=== PATIENT | female | born 1940 | race Caucasian/White ===

== ENCOUNTER 2024-09-11 07:47 | Inpatient (IN) | payer MEDICARE ==
[~2024-09-11] VITALS: Ht 162.6 cm; Wt 49.9 kg
[2024-09-11 07:49] VITALS: PULSE 126; RESP 32; TEMP 103
[2024-09-11] MEDS: LACTATED RINGER'S 1,000 ML INJ ONE (07:50)
[2024-09-11] MEDS: NOREPINEPHRINE 8 MG/D5W 250 ML 250 ML IV SCH (07:50)
[2024-09-11] MEDS ORDERED: NOREPINEPHRINE 8 MG/D5W 250 ML 250 ML ONE (07:57)
[2024-09-11 08:10] LABS: BASOPHILS % 0.3 % (0.0-1.0); EOSINOPHILS % 4.3 % (0.0-6.0); LYMPHOCYTES % 5.9 % (18.0-39.1); MONOCYTES % 7.1 % (4.4-11.3); NEUTROPHILS % 80.7 % (38.7-80.0); RED CELL DISTRIBUTION WIDTH 16.7 % (11.7-14.4)
[2024-09-11] MEDS ORDERED: ACETAMINOPHEN 1000 MG/100 ML 100 ML IV ONE (08:11)
[2024-09-11] MEDS: ACETAMINOPHEN 1000 MG/100 ML IV STA (08:18)
[2024-09-11] MEDS ORDERED: AMLODIPINE BESYL5 MG PO (08:26)
[2024-09-11] MEDS ORDERED: DOCUSATE SODIU100 MG PO (08:26)
[2024-09-11] MEDS ORDERED: CLARITIN10 MG PO (08:26)
[2024-09-11] MEDS ORDERED: LOSARTAN POTASS25 MG PO (08:28)
[2024-09-11] MEDS ORDERED: HYDROCHLOROTHIA25 MG PO (08:28)
[2024-09-11] MEDS ORDERED: TRICOR145 MG PO (08:28)
[2024-09-11 08:29] LABS: INR 1.39
[2024-09-11 08:33] LABS: EST GLOMERULAR FILTRATION RATE 16.0 ML/MIN (>=60)
[2024-09-11] MEDS ORDERED: OXYBUTYNIN CHLOR5 MG PO (08:35)
[2024-09-11] MEDS ORDERED: NITROFURANTOIN50 MG PO (08:35)
[2024-09-11] MEDS ORDERED: METFORMIN HCL500 MG PO (08:35)
[2024-09-11] MEDS ORDERED: ROSUVASTATIN CA10 MG PO (08:35)
[2024-09-11 08:46] LABS: BASOPHILS % (MANUAL) 1 % (0-1.5); EOSINOPHILS % (MANUAL) 2 % (0-7); LYMPHOCYTES % (MANUAL) 6 % (19-48); MONOCYTES % (MANUAL) 7 % (3.4-9.0); NEUTROPHILS % (MANUAL) 84 % (40-74); PLATELET ESTIMATE ADEQUATE; PLATELET MORPHOLOGY COMMENT NORMAL; RBC MORPHOLOGY COMMENT NORMAL
[2024-09-11] MEDS ORDERED: Morphine 4mg INJECTION 4 MG/ML INJ IV PRN (09:15)
[2024-09-11] MEDS ORDERED: Doxycycline IV 100 MG in SODIUM CHLORIDE 0.9% 100 ML IV SCH (09:15)
[2024-09-11] MEDS ORDERED: LORAZEPAM INJ 2 MG/ML VIAL IV PRN (09:15)
[2024-09-11] MEDS: ONDANSETRON HCL INJ 2MG/ML 2ML 2 MG/ML VIAL IV PRN (09:15)
[2024-09-11] MEDS: Morphine 4mg INJECTION 4 MG/ML INJ IV PRN (09:16)
[2024-09-11 09:19] LABS: LEUKOCYTE ESTERASE ,URINE SMALL (NEGATIVE); PROTEIN,URINE DIPSTICK TRACE (NEGATIVE); URINE UROBILINOGEN 0.2 mg/dL (0.2 - 1)
[2024-09-11 09:22] LABS: EPITHELIAL CELLS,URINE RARE /LPF
[2024-09-11] MEDS ORDERED: DEXTROSE 5%/0.45% SOD CHL 1,000 ML IV SCH (10:00)
[2024-09-11 10:39] VITALS: BP 65/38; PULSE 62; RESP 20; TEMP 99.7; O2SAT 95
[2024-09-11 11:05] VITALS: BP 65/38; PULSE 62; RESP 20; TEMP 99.7; O2SAT 95
[2024-09-11 11:17] VITALS: BP 65/38; PULSE 62; RESP 20; TEMP 99.7; O2SAT 95
[2024-09-11 11:58] VITALS: PULSE 62; O2SAT 96
== END 2024-09-11 13:30 | disposition hospice, inpatient (51) | DRG 871 ==
LOC: ER 07:51 → ERHOLD 08:41 → MED/SURG2 10:15
PROVIDERS: ADMIT Internal Medicine; ATTEND Internal Medicine
DX: A41.9 Sepsis, unspecified organism (principal); J18.9 Pneumonia, unspecified organism; J96.01 Acute respiratory failure with hypoxia; R65.21 Severe sepsis with septic shock; E87.20 Acidosis, unspecified; N17.9 Acute kidney failure, unspecified; E87.0 Hyperosmolality and hypernatremia; Z68.1 Body mass index [BMI] 19.9 or less, adult; R62.7 Adult failure to thrive; Z51.5 Encounter for palliative care; Z66 Do not resuscitate; I10 Essential (primary) hypertension; E11.9 Type 2 diabetes mellitus without complications; F03.C0 Unspecified dementia, severe, without behavioral disturbance, psychotic disturbance, mood disturbance, and anxiety; E86.0 Dehydration; R53.81 Other malaise
CPT/HCPCS: 36415; 71045; 80053; 81001; 83605; 85025; 85610; 85730; 87040; 87086; 87106; 93005; 94760; 94799; 99285; J2270; J2405; J2543

== ENCOUNTER 2024-09-11 13:26 | Inpatient (IN) | payer OTHER ==
[~2024-09-11] VITALS: Ht 315 cm; Wt 49.9 kg
[~2024-09-11 13:26] MED LIST: AMLODIPINE BESYL5 MG PO; CLARITIN10 MG PO; DOCUSATE SODIU100 MG PO; HYDROCHLOROTHIA25 MG PO; LOSARTAN POTASS25 MG PO; METFORMIN HCL500 MG PO; NITROFURANTOIN50 MG PO; OXYBUTYNIN CHLOR5 MG PO; ROSUVASTATIN CA10 MG PO; TRICOR145 MG PO
[2024-09-11] MEDS ORDERED: LORAZEPAM INJ 2 MG/ML VIAL IV PRN (15:00)
[2024-09-11] MEDS ORDERED: Morphine 4mg INJECTION 4 MG/ML INJ IV PRN (15:00)
[2024-09-11] MEDS ORDERED: ACETAMINOPHEN 650 MG SUPP PR PRN (15:00)
[2024-09-11] MEDS ORDERED: ONDANSETRON HCL INJ 2MG/ML 2ML 2 MG/ML VIAL IV PRN (15:00)
[2024-09-11] MEDS: LORAZEPAM INJ 2 MG/ML VIAL IV SCH (15:11)
[2024-09-11] MEDS: Morphine 4mg INJECTION 4 MG/ML INJ IV SCH (15:11)
[2024-09-11] MEDS ORDERED: SCOPOLAMINE 1 MG PATCH TOP PRN (15:30)
[2024-09-11] MEDS ORDERED: BISACODYL 10 MG SUPP PR PRN (15:30)
[2024-09-11 16:00] VITALS: BP 51/32; PULSE 98; RESP 20; TEMP 99.3; O2SAT 91
[2024-09-11 16:09] VITALS: BP 51/32; PULSE 70; RESP 20; TEMP 99.3; O2SAT 91
== END 2024-09-11 22:58 | disposition expired | DRG 951 ==
LOC: MED/SURG2 13:26
PROVIDERS: ADMIT Internal Medicine; ATTEND Internal Medicine
DX: Z51.5 Encounter for palliative care (principal); Z66 Do not resuscitate
CPT/HCPCS: J2060; J2270